=== PATIENT | female | born 1990 | race African-American/Black ===

== ENCOUNTER 2016-06-16 17:01 | Emergency (ER) | payer MEDICAID ==
[~2016-06-16] VITALS: Ht 162.6 cm; Wt 55.0 kg
[~2016-06-16 17:01] MED LIST: HYDR-3927 PO; VIC PO
[2016-06-16 21:03] LABS: CLARITY URINE TURBID (CLEAR); COLOR URINE YELLOW (YELLOW); GLUCOSE URINE NEGATIVE (NEGATIVE); KETONES URINE 1+ (NEGATIVE); LEUKOCYTE ESTERASE URINE TRACE (NEGATIVE); NITRITE URINE NEGATIVE (NEGATIVE); OCCULT BLOOD URINE NEGATIVE (NEGATIVE); PH URINE 6.5 (4.5-8.0); PROTEIN URINE NEGATIVE (NEGATIVE); SPECIFIC GRAVITY URINE 1.019 (1.005-1.030); UROBILINOGEN URINE 0.2 E.U./dL (0.2-1.0)
[2016-06-16 21:43] LABS: SQUAMOUS EPITHELIAL CELL URINE FEW /lpf (RARE/1+)
[2016-06-16 21:45] LABS: BACTERIA URINE TRACE; RBC URINE NONE SEEN /hpf (0-2)
[2016-06-16 22:09] LABS: CHLORIDE 104 mEq/L (98-107); INDEX HEMOLYSI 1 (1-3); INDEX ICTERIC 1 (1-4); INDEX LIPEMIC 1 (1-3)
[2016-06-16 22:11] LABS: BASOPHILS % 0.3 % (0.0-2.0); EOSINOPHILS % 1.7 % (0.0-5.0); HEMATOCRIT. 31.1 % (36.0-48.0); HEMOGLOBIN. 10.6 g/dL (12.0-16.0); LYMPHOCYTES % 28.4 % (20.0-50.0); MEAN CORPUSCULAR HEMOGLOBIN 33.1 pg (28.0-32.0); MEAN CORPUSCULAR HGB CONC 34.1 g/dL (31.0-37.0); MEAN CORPUSCULAR VOLUME 97.3 fL (81.0-99.0); MEAN PLATELET VOLUME 9.1 fl (7.4-10.4); MONOCYTES % 11.3 % (2.0-8.0); NEUTROPHILS % 58.3 % (40.0-76.0); PLATELET 196 x1000/uL (130-400); RED CELL DISTRIBUTION WIDTH 13.4 % (11.6-14.6); WHITE BLOOD COUNT 8.4 x1000/uL (4.5-11.0)
[2016-06-16 22:15] LABS: ANION GAP 12; CALCIUM 8.3 mg/dL (8.5-10.1); CARBON DIOXIDE 25 mEq/L (21-32); UREA NITROGEN BLOOD 6 mg/dL (7-21)
[2016-06-16 22:19] LABS: eGFR > 60 mL/min (>60)
[2016-06-16 22:32] LABS: B-HCG QUANTITATIVE 21301 mIU/mL (<3)
[2016-06-16 23:05] VITALS: BP 122/75
== END 2016-06-16 23:05 | disposition home or self-care (01) ==
LOC: ER 17:02
DX: S36.32XA Contusion of stomach, initial encounter (principal); O26.892 Other specified pregnancy related conditions, second trimester; J45.909 Unspecified asthma, uncomplicated; Z90.49 Acquired absence of other specified parts of digestive tract; Z3A.17 17 weeks gestation of pregnancy; Y93.89 Activity, other specified; Y92.89 Other specified places as the place of occurrence of the external cause; Y99.8 Other external cause status
CPT/HCPCS: 36415; 76810; 80048; 81001; 84702; 85025; 99285

== ENCOUNTER 2016-09-12 19:00 | Observation (INO) | payer MEDICAID ==
[~2016-09-12] VITALS: Ht 162.6 cm; Wt 65.8 kg
[2016-09-12] MEDS ORDERED: LACTATED RINGERS 500 ML IV NR (20:00)
[2016-09-12] MEDS ORDERED: ONDANSETRON HCL 4MG/2ML VIAL IV NR (20:15)
[2016-09-12] MEDS ORDERED: TERBUTALINE SULFATE 1MG/ML VIAL SUBCUT SCH (21:45)
[2016-09-12] MEDS ORDERED: LACTATED RINGERS 1,000 ML IV SCH (22:00)
[2016-09-12] MEDS ORDERED: PREN-55 PO (22:06)
[2016-09-13] MEDS ORDERED: FENTANYL CITRATE/PF 50MCG/ML 2ML VIAL ONE (08:55)
[2016-09-13] MEDS ORDERED: MIDAZOLAM HCL 2 MG/2 ML VIAL ONE (08:55)
== END 2016-09-12 23:55 | disposition home or self-care (01) ==
LOC: L&D 19:00
PROVIDERS: ADMIT Obstetrics & Gynecology; ATTEND Obstetrics & Gynecology
DX: O62.9 Abnormality of forces of labor, unspecified (principal); O26.893 Other specified pregnancy related conditions, third trimester; R19.7 Diarrhea, unspecified; O30.003 Twin pregnancy, unspecified number of placenta and unspecified number of amniotic sacs, third trimester; Z3A.29 29 weeks gestation of pregnancy
CPT/HCPCS: 82731; 96361; 96372; 96374; 99281; G0378; J2405; J3105; J7120; 96360; J2250; J3010